=== PATIENT | female | born 1950 | race Caucasian/White ===

== ENCOUNTER 2016-07-18 06:36 | Day surgery (SDC) | payer MEDICARE, BC ==
[2016-07-17 15:09] LABS: HEMATOCRIT 41.7 % (36.0-48.0); HEMOGLOBIN 13.8 g/dL (12-16); MCH 31.7 pg (26.0-34.0); MCHC 33.1 g/dL (31.0-37.0); MCV 95.9 fL (80.0-100.0); MEAN PLATELET VOLUME 9.5 fL (7.4-10.4); RBC 4.35 10x6/uL (4.00-5.40); RDW 13.5 % (11.5-14.5); WBC 6.6 10x3/uL (4.8-10.8)
[2016-07-17 15:38] LABS: ANION GAP 12.9 mmol/L (8-16); CALCIUM 9.2 mg/dL (8.5-10.1); CARBON DIOXIDE 30.5 mmol/L (21.0-32.0); CREATININE - SERUM 0.9 mg/dL (0.6-1.3); POTASSIUM - SERUM 3.4 mmol/L (3.5-5.1)
[~2016-07-18] VITALS: Ht 168.9 cm; Wt 77.1 kg
--- NOTE | ~2016-07-18 | OP ---
PATIENT NAME: TELLY BAR MEDICAL RECORD: [id number] :48 LOCATION:[facility] ADMISSION DATE: SURGEON: ALEXA STEWART DPM DATE OF OPERATION: 07/18/2016 PREOPERATIVE DIAGNOSIS: Lipoma, right ankle. POSTOPERATIVE DIAGNOSIS: Lipoma, right ankle. PROCEDURE: Excision of lipoma, right lateral ankle. ANESTHESIA: General with local infiltrate utilizing lidocaine and Marcaine plain, approximately 10 cc total, and a V block around the lateral anterior ankle of the right foot. HEMOSTASIS: Right ankle tourniquet at 250 mmHg. PREOPERATIVE DETAILS: The patient was taken to the OR and placed in the operating table in a supine position followed by induction general anesthesia and infiltration of local anesthetic. The right extremity was then prepped and draped in the usual aseptic technique followed by exsanguination of extremity and inflation of tourniquet. A 15 blade was used to create a 4-cm linear incision over the lateral aspect of the right ankle overlying the sinus tarsi area. The incision was deepened down through subcutaneous tissue to the subcutaneous fat. The lipoma was then freed from surrounding soft tissue structures and excised and sent to pathology. Wound was flushed. The subcutaneous tissue was reapproximated with 4-0 Rapide, the skin was closed with 4-0 Rapide in a subcuticular technique followed by Dermabond, Adaptic, 4 x 4 and Conform were used to dress the wound followed by Coban. Tourniquet was deflated. POSTOPERATIVE DETAILS: The patient tolerated the procedure well and left the OR with vital signs stable and vascular status at preoperative levels. The patient was transported to recovery per anesthesia in stable condition. TRANSINT:[id number] Voice Confirmation ID: [id number] DOCUMENT ID: [id number] ALEXA STEWART DPM CC: [id number] DICTATION DATE: 07/18/16 0924 [facility] DIRECTOR: 07/18/16 1555 [facility] 07/18/[address] [id number]
[~2016-07-18 06:36] MED LIST: BENICAR HCT 40-1 TA1 PO; MIRAPEX0.5 MG PO; TENORMIN25 MG PO; ZYLOPRIM300 MG PO
[2016-07-18 07:06] VITALS: BP 118/83; Ht 168.9 cm; Wt 77.1 kg
== END 2016-07-18 10:50 | disposition home or self-care (01) ==
LOC: D.OPS 06:36 → D.PAN 09:00 → D.OPS 10:50
PROVIDERS: Anesthesiology
DX: D17.79 Benign lipomatous neoplasm of other sites (principal); I10 Essential (primary) hypertension; Z01.812 Encounter for preprocedural laboratory examination

== ENCOUNTER → 2017-09-05 08:19 | Outpatient (CLI) | payer MEDICARE, BC ==
[2016-07-18 07:06] VITALS: BMI 27.0
== END | disposition home or self-care (01) ==
LOC: D.CT 08:19
DX: D61.89 Other specified aplastic anemias and other bone marrow failure syndromes (principal)

== ENCOUNTER → 2017-12-17 09:33 | Outpatient (CLI) | payer MEDICARE, BC ==
[2016-07-18 07:06] VITALS: BMI 27.0
== END | disposition home or self-care (01) ==
LOC: D.US 12-16 08:30 → D.CT 09:33
DX: R91.1 Solitary pulmonary nodule (principal)

== ENCOUNTER → 2018-01-22 20:50 | Outpatient (CLI) | payer MEDICARE, BC ==
[2016-07-18 07:06] VITALS: BMI 27.0
== END | disposition home or self-care (01) ==
LOC: D.MAMMO 09:15
DX: Z12.31 Encounter for screening mammogram for malignant neoplasm of breast (principal)

== ENCOUNTER → 2018-06-17 08:14 | Outpatient (CLI) | payer MEDICARE, BC ==
[2016-07-18 07:06] VITALS: BMI 27.0
== END | disposition home or self-care (01) ==
LOC: D.CT 08:14
PROVIDERS: ATTEND Family Medicine
DX: R91.1 Solitary pulmonary nodule (principal)

== ENCOUNTER 2019-01-23 09:00 | Outpatient (CLI) | payer MEDICARE, BC ==
[2016-07-18 07:06] VITALS: BMI 27.0
== END 2019-01-23 10:00 | disposition home or self-care (01) ==
LOC: D.MAMMO 09:00
PROVIDERS: ATTEND Family Medicine
DX: Z12.31 Encounter for screening mammogram for malignant neoplasm of breast (principal)

== ENCOUNTER → 2019-02-26 11:30 | Outpatient (CLI) | payer MEDICARE, BC ==
[2016-07-18 07:06] VITALS: BMI 27.0
== END | disposition home or self-care (01) ==
LOC: D.MAMMO 11:30
PROVIDERS: ATTEND Family Medicine
DX: R92.8 Other abnormal and inconclusive findings on diagnostic imaging of breast (principal)

== ENCOUNTER 2019-08-31 19:00 | Outpatient (CLI) | payer MEDICARE, BC ==
[2016-07-18 07:06] VITALS: BMI 27.0
== END 2019-08-31 23:59 | disposition home or self-care (01) ==
LOC: D.MAMMO 19:00
PROVIDERS: ATTEND Family Medicine
DX: R92.8 Other abnormal and inconclusive findings on diagnostic imaging of breast (principal)

== ENCOUNTER → 2019-12-15 08:45 | Outpatient (CLI) | payer MEDICARE, BC ==
[2016-07-18 07:06] VITALS: BMI 27.0
== END | disposition home or self-care (01) ==
LOC: D.US 08:45
PROVIDERS: ATTEND Family Medicine
DX: E03.9 Hypothyroidism, unspecified (principal); R92.8 Other abnormal and inconclusive findings on diagnostic imaging of breast

== ENCOUNTER 2020-08-10 10:30 | Outpatient (CLI) | payer MEDICARE, BC ==
[2016-07-18 07:06] VITALS: BMI 27.0
== END 2020-08-10 11:00 | disposition home or self-care (01) ==
LOC: D.MAMMO 10:30
PROVIDERS: ATTEND Family Medicine
DX: R92.8 Other abnormal and inconclusive findings on diagnostic imaging of breast (principal)